=== PATIENT | female | born 1945 | race Caucasian/White ===

== ENCOUNTER 2017-12-31 16:00 | Observation (INO) | payer OTHER ==
[~2017-12-31] VITALS: Ht 170.2 cm; Wt 65.5 kg
[~2017-12-31 16:00] MED LIST: ACETAMINOPHEN500 MG PO; ADVAIR HFA120 INHALA IH; ALBUTEROL SULF8.5 GM IH; AMLODIPINE; AMLODIPINE BESY10 MG PO; ASPIRIN81 M2 PO; AZULFIDINE500 MG PO; Advair HFA 115/21 IH; Azulfidine PO; BENADRILINA25 MG PO; CELECOXIB200 MG PO; CENTRUM SILVER1 EAC3 PO; CLARITIN10 M3 PO; COLACE100 MG PO; COMPAZINE10 MG PO; DEXAMETHASONE4 MG PO; DOCUSATE SODIU100 MG PO; ERGOCALCIF50000 UNIT PO; FOLIC ACID1 MG PO; Folvite PO; HYDROCODON-ACE1 EAC7 PO; HYDROCODON-ACE1 EAC8 PO; HYDROXYCHLOROQ200 MG PO; LEVAQUIN500 MG PO; LEXAPRO10 MG PO; LOPRESSOR50 MG PO; LOVENOX40 MG/0.4 SC; Levaquin PO; Lexapro PO; Lopressor PO; MECLIZINE HCL25 MG PO; METHOTREXATE2.5 MG PO; METOPROLOL TART25 MG PO; METOPROLOL TART50 MG PO; MOBIC7.5 MG PO; Medrol Dosepak PO; NORVASC10 MG PO; Norvasc PO; PREDNISONE2.5 MG PO; PREDNISONE20 MG PO; PRILOSEC40 MG PO; Proventil,Ventolin 0 IH; Proventil,Ventolin H IH; SPIRIVA RESPIMAT4 GM IH; SULFASALAZINE500 MG PO; SULFAZINE500 MG PO; Spiriva IH; TAMIFLU75 MG PO; Theragran PO; VIMOVO 500-201 EAC1 PO; VIMOVO PO; VITAMIN D250000 UNIT PO; Zithromax PO; predniSONE PO
[2017-12-31 18:09] LABS: HEMATOCRIT 41.5 % (36.0-46.0); HEMOGLOBIN 13.8 G/DL (11.9-15.5); MCHC 33.3 G/DL (30.0-36.0); MCV 96.3 FL (83-99); PLATELET COUNT 214 K/uL (156-360); RBC DIS.WIDTH-CV 14.6 % (11.8-14.6); RBC DIS.WIDTH-SD 50.9 % (39-53); RED BLOOD COUNT 4.31 M/uL (3.80-5.20); WHITE BLOOD COUNT 9.7 K/uL (4.1-10.2)
[2017-12-31 18:23] LABS: CHLORIDE 104 mEq/L (99-109); POTASSIUM 4.5 mEq/L (3.7-5.4); SODIUM 139 mEq/L (136-147)
[2017-12-31 18:25] LABS: GLUCOSE 108 mg/dL (70-99)
[2017-12-31 18:29] LABS: GFR ESTIMATE (CALCULATED) 58 mL/min/
[2017-12-31 18:30] LABS: UREA NITROGEN (BUN) 16 mg/dL (9-23)
[2017-12-31 18:35] LABS: TROP-I INTERPRETATION NEGATIVE; TROPONIN-I 0.01 ng/mL (0.0-0.30)
[2017-12-31 19:27] LABS: APPEARANCE CLEAR ((CLEAR)); BILIRUBIN NEGATIVE; BLOOD NEGATIVE; COLOR AMBER ((YELLOW)); GLUCOSE (STRIP) NEGATIVE; KETONES NEGATIVE; LEUKOCYTES NEGATIVE; NITRITE NEGATIVE; PROTEIN (STRIP) 30; SPECIFIC GRAVITY 1.021 (1.000-1.030); UCUL ADDED? NO
[2018-01-01 00:38] VITALS: BP 129/69
[2018-01-01 05:26] VITALS: BP 119/58
[2018-01-01 06:13] LABS: CHLORIDE 106 MEQ/L (99-109); CREATININE 0.8 MG/DL (0.6-1.3); GFR ESTIMATE (CALCULATED) > 59 mL/min/; POTASSIUM 3.9 MEQ/L (3.7-5.4); SODIUM 139 MEQ/L (136-147); UREA NITROGEN (BUN) 15 mg/dL (9-23)
[2018-01-01 06:17] LABS: GLUCOSE 75 mg/dL (70-99); HEMATOCRIT 34.2 % (36.0-46.0); MCH 31.5 PG (29.0-34.0); MCV 95.3 FL (83-99); PLATELET COUNT 210 K/uL (156-360); RBC DIS.WIDTH-CV 14.6 % (11.8-14.6); RBC DIS.WIDTH-SD 50.2 % (39-53); RED BLOOD COUNT 3.59 M/uL (3.80-5.20); WHITE BLOOD COUNT 7.3 K/uL (4.1-10.2)
[2018-01-01 06:22] LABS: HEMOGLOBIN 11.3 G/DL (11.9-15.5)
[2018-01-01 07:55] VITALS: BP 133/66
[2018-01-01] MEDS ORDERED: PREDNISONE5 MG PO (11:48)
[2018-01-01] MEDS ORDERED: ANTIVERT25 MG PO (11:49)
[2018-01-01] MEDS ORDERED: FOLIC ACID1 MG PO (11:49)
[2018-01-01] MEDS ORDERED: ADVIL200 MG PO (11:50)
[2018-01-01 15:11] VITALS: BP 125/64
[2018-01-01 19:10] VITALS: BP 130/66
[2018-01-02 00:08] VITALS: BP 138/73
[2018-01-02 05:28] LABS: BASOPHIL (%) 1.1 % (0-1); BASOPHIL COUNT 0.1 K/uL (0-0.1); EOSINOPHIL (%) 7.7 % (0-5); EOSINOPHIL COUNT 0.4 K/uL (0-0.3); HEMATOCRIT 35.8 % (36.0-46.0); HEMOGLOBIN 11.7 G/DL (11.9-15.5); IMMATURE GRANULOCYTE (%) 0.4 % (0.0-0.7); LYMPHOCYTE (%) 22.2 % (15-42); LYMPHOCYTE COUNT 1.2 K/uL (1.0-2.8); MCH 31.5 PG (29.0-34.0); MCHC 32.7 G/DL (30.0-36.0); MCV 96.2 FL (83-99); MONOCYTE (%) 14.7 % (3-12); MONOCYTE COUNT 0.8 K/uL (0-0.8); NEUTROPHIL (%) 53.9 % (45-76); NEUTROPHIL COUNT 2.9 K/uL (1.8-6.4); PLATELET COUNT 201 K/uL (156-360); RBC DIS.WIDTH-CV 14.6 % (11.8-14.6); RBC DIS.WIDTH-SD 51.3 % (39-53); RED BLOOD COUNT 3.72 M/uL (3.80-5.20); WHITE BLOOD COUNT 5.3 K/uL (4.1-10.2)
[2018-01-02 05:49] LABS: CHLORIDE 108 MEQ/L (99-109); CREATININE 0.8 MG/DL (0.6-1.3); GFR ESTIMATE (CALCULATED) > 59 mL/min/; GLUCOSE 81 mg/dL (70-99); SODIUM 141 MEQ/L (136-147); UREA NITROGEN (BUN) 16 mg/dL (9-23)
[2018-01-02 08:00] VITALS: BP 146/75
[2018-01-02 11:55] VITALS: BP 119/55
[2018-01-02 15:08] VITALS: BP 137/67
== END 2018-01-02 17:39 | disposition home or self-care (01) ==
LOC: EME 16:00 → 4SOUTH 22:06 → EDOF 22:06 → ENRESERV 22:07 → 4SOUTH 23:56
PROVIDERS: Hospitalist; Nurse Practitioner Adult Health; Nurse Practitioner Family
DX: S32.10XA Unspecified fracture of sacrum, initial encounter for closed fracture (principal); R26.89 Other abnormalities of gait and mobility; M53.3 Sacrococcygeal disorders, not elsewhere classified; R91.1 Solitary pulmonary nodule; K57.32 Diverticulitis of large intestine without perforation or abscess without bleeding; Z87.891 Personal history of nicotine dependence; Z96.641 Presence of right artificial hip joint; W19.XXXA Unspecified fall, initial encounter
CPT/HCPCS: 70450; 71250; 72125; 72128; 72131; 72220; 74176; 80048; 81003; 84484; 85025; 85027; 93005; 99281; 99285; G0378; G8987 GO CJ; G8988 CI; G8989 CJ; J3010; J7512